=== PATIENT | female | born 1995 | race Caucasian/White ===

== ENCOUNTER 2017-04-05 11:33 | Emergency (ER) | payer OTHER ==
[~2017-04-05] VITALS: Ht 167.6 cm; Wt 76.2 kg
[2017-04-05 12:05] VITALS: Ht 167.6 cm; Wt 76.2 kg
[2017-04-05 15:05] VITALS: BP 116/68
== END 2017-04-05 15:03 | disposition home or self-care (01) ==
LOC: ED 11:33
DX: J11.1 Influenza due to unidentified influenza virus with other respiratory manifestations (principal)
CPT/HCPCS: J1885; J2405; J7030

== ENCOUNTER 2019-05-03 19:54 | Emergency (ER) | payer SELFPAY ==
[~2019-05-03] VITALS: Ht 167.6 cm; Wt 81.2 kg
[2019-05-03 20:07] VITALS: Ht 167.6 cm; Wt 81.2 kg
[2019-05-03 20:28] VITALS: BP 144/95
== END 2019-05-03 20:28 | disposition home or self-care (01) ==
LOC: ED 19:54
DX: L01.00 Impetigo, unspecified (principal)

== ENCOUNTER 2020-01-20 13:25 | Emergency (ER) | payer SELFPAY ==
[~2020-01-20] VITALS: Ht 167.6 cm; Wt 77.1 kg
[2020-01-20 13:37] VITALS: Ht 167.6 cm; Wt 77.1 kg
[2020-01-20 15:08] VITALS: BP 120/89
== END 2020-01-20 15:08 | disposition home or self-care (01) ==
LOC: ED 13:25
DX: L25.9 Unspecified contact dermatitis, unspecified cause (principal)